=== PATIENT | female | born 1960 | race Caucasian/White ===

== ENCOUNTER 2021-02-04 13:53 | Emergency (ER) | payer MEDICARE, MEDICAID ==
[~2021-02-04] VITALS: Ht 157 cm; Wt 77.2 kg
[2021-02-04 14:22] LABS: BASOPHILS # (AUTO) 0.1 10^3/uL (0.0-0.1); BASOPHILS % (AUTO) 1 % (0-10); EOSINOPHILS # (AUTO) 0.2 10^3/uL (0.0-0.3); EOSINOPHILS % (AUTO) 1 % (0-10); HEMATOCRIT 44 % (35-52); HEMOGLOBIN 14.8 g/dL (11.5-16.0); LYMPHOCYTES # (AUTO) 5.6 10^3/uL (1.0-4.0); LYMPHOCYTES % (AUTO) 39 % (12-44); MEAN CORPUSCULAR HEMOGLOBIN 31 pg (25-34); MEAN CORPUSCULAR HGB CONC 33 g/dL (32-36); MEAN CORPUSCULAR VOLUME 94 fL (80-99); MEAN PLATELET VOLUME 9.1 fL (9.0-12.2); MONOCYTES # (AUTO) 1.1 10^3/uL (0.0-1.0); MONOCYTES % (AUTO) 8 % (0-12); NEUTROPHILS # (AUTO) 7.2 10^3/uL (1.8-7.8); NEUTROPHILS % (AUTO) 51 % (42-75); PLATELET COUNT 346 10^3/uL (130-400); WHITE BLOOD COUNT 14.2 10^3/uL (4.3-11.0)
[2021-02-04 14:29] LABS: POTASSIUM 3.9 MMOL/L (3.6-5.0)
[2021-02-04 14:30] LABS: CALCIUM 9.8 MG/DL (8.5-10.1)
[2021-02-04] MEDS ORDERED: LACTATED RINGERS 1,000 ML IV SCH (14:30)
[2021-02-04 14:31] LABS: TOTAL PROTEIN 7.5 GM/DL (6.4-8.2)
--- NOTE | 2021-02-04 14:32 | ED Syncope ---
General Chief Complaint: Dizziness/Syncope Stated Complaint: SYNCOPE Nursing Triage Note: TO ED PER EMS WAS AT [facility] REPORTS FEELING HOT AND THAN WAKING UP WITH PEOPLE LOOKING AT HER. REPORTS WAS CAUGHT BY SON AND HELPED TO GROWN. AWAKE ALERT ON ADMIT. AND READY TO GO HOME. PMH OF CVA IN JUN AND HAS WEAKNESS ON L SIDE FROM Source of Information: Patient Exam Limitations: No Limitations History of Present Illness Date Seen by Provider: Feb 04, 2021 Time Seen by Provider: 14:00 Initial Comments To ER by EMS from [facility]. She was at a football game feeling fine this morning when she got to feeling hot then lightheaded and laid down. She did not hit her head, there was some convulsion-like activity after this. She states that this time she feels back to normal and wants to go home. 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 Timing/Prior Episodes: No Prior History Symptoms Prior to Episode: None Precipitating Factors: None Loss of Consciousness: Brief (Seconds) Current Symptoms: Back to Normal Allergies and Home Medications Allergies Coded Allergies: Penicillins (Verified Allergy, Unknown, 02/04/21) Sulfa (Sulfonamide Antibiotics) (Verified Allergy, Unknown, 02/04/21) cephalexin (Verified Allergy, Unknown, 02/04/21) Patient Home Medication List Home Medication List Reviewed: Yes Review of Systems Constitutional: see HPI; No chills, No fever EENTM: see HPI Respiratory: no symptoms reported Cardiovascular: no symptoms reported Genitourinary: no symptoms reported Musculoskeletal: no symptoms reported Skin: no symptoms reported Psychiatric/Neurological: No Symptoms Reported Past [id number] Hx Patient Social History Tobacco Use?: Yes Substance use?: No Physical Exam Vital Signs Vital Signs - First Documented 02/04/21 13:53 Pulse 89 Resp 18 B/P (MAP) 129/80 (96) Pulse Ox 97 O2 Delivery Room Air Capillary Refill : Less Than 3 Seconds Height, Weight, BMI Height: '" Weight: lbs. oz. kg; 31.00 BMI Method: General Appearance: No Apparent Distress, WD/WN HEENT: PERRL/EOMI, TMs Normal Neck: Full Range of Motion, Normal Inspection Respiratory: No Accessory Muscle Use, No Respiratory Distress Gastrointestinal: Normal Bowel Sounds, Non Tender, Soft Extremities: Normal Capillary Refill, Normal Inspection Neurologic/Psychiatric: Alert, Oriented x3 Cranial Nerves: Normal Hearing, Normal Speech, PERRL Skin: Normal Color, Warm/Dry Progress/Results/Core Measures Results/Orders Lab Results Laboratory Tests Test 02/04/21 14:08 02/04/21 14:47 Range/Units White Blood Count 14.2 H 4.3-11.0 10^3/uL Red Blood Count 4.74 3.80-5.11 10^6/uL Hemoglobin 14.8 11.5-16.0 g/dL Hematocrit 44 35-52 % Mean Corpuscular Volume 94 80-99 fL Mean Corpuscular Hemoglobin 31 25-34 pg Mean Corpuscular Hemoglobin Concent 33 32-36 g/dL Red Cell Distribution Width 12.9 10.0-14.5 % Platelet Count 346 130-400 10^3/uL Mean Platelet Volume 9.1 9.0-12.2 fL Immature Granulocyte % (Auto) 1 % Neutrophils (%) (Auto) 51 42-75 % Lymphocytes (%) (Auto) 39 12-44 % Monocytes (%) (Auto) 8 0-12 % Eosinophils (%) (Auto) 1 0-10 % Basophils (%) (Auto) 1 0-10 % Neutrophils # (Auto) 7.2 1.8-7.8 10^3/uL Lymphocytes # (Auto) 5.6 H 1.0-4.0 10^3/uL Monocytes # (Auto) 1.1 H 0.0-1.0 10^3/uL Eosinophils # (Auto) 0.2 0.0-0.3 10^3/uL Basophils # (Auto) 0.1 0.0-0.1 10^3/uL Immature Granulocyte # (Auto) 0.1 0.0-0.1 10^3/uL Neutrophils % (Manual) 51 % Lymphocytes % (Manual) 35 % Monocytes % (Manual) 8 % Atypical Lymphocytes 6 % Blood Morphology Comment NORMAL Sodium Level 136 135-145 MMOL/L Potassium Level 3.9 3.6-5.0 MMOL/L Chloride Level 102 98-107 MMOL/L Carbon Dioxide Level 20 L 21-32 MMOL/L Anion Gap 14 5-14 MMOL/L Blood Urea Nitrogen 12 7-18 MG/DL Creatinine 1.22 0.60-1.30 MG/DL Estimat Glomerular Filtration Rate 45 BUN/Creatinine Ratio 10 Glucose Level 133 H 70-105 MG/DL Calcium Level 9.8 8.5-10.1 MG/DL Corrected Calcium 9.8 8.5-10.1 MG/DL Total Bilirubin 0.6 0.1-1.0 MG/DL Aspartate Amino Transf (AST/SGOT) 16 5-34 U/L Alanine Aminotransferase (ALT/SGPT) 20 0-55 U/L Alkaline Phosphatase 59 40-136 U/L Total Protein 7.5 6.4-8.2 GM/DL Albumin 4.0 3.2-4.5 GM/DL Urine Color YELLOW Urine Clarity SL CLOUDY Urine pH 5.5 5-9 Urine Specific Burchard >=1.030 1.016-1.022 Urine Protein TRACE H NEGATIVE Urine Glucose (UA) NEGATIVE NEGATIVE Urine Ketones NEGATIVE NEGATIVE Urine Nitrite POSITIVE H NEGATIVE Urine Bilirubin NEGATIVE NEGATIVE Urine Urobilinogen 0.2 < = 1.0 MG/DL Urine Leukocyte Esterase 1+ H NEGATIVE Urine RBC (Auto) NEGATIVE NEGATIVE Urine RBC 2-5 H /HPF Urine WBC >100 H /HPF Urine Squamous Epithelial Cells 2-5 /HPF Urine Crystals NONE /LPF Urine Bacteria MODERATE H /HPF Urine Casts PRESENT /LPF Urine Hyaline Casts 25-50 H /LPF Urine Mucus MODERATE H /LPF Urine Culture Indicated YES My Orders Orders - DANIELA MEIER APRN Ekg Tracing (02/04/21 14:02) Cbc With Automated Diff (02/04/21 14:02) Comprehensive Metabolic Panel (02/04/21 14:02) Ua Culture If Indicated (02/04/21 14:02) Ed Iv/Invasive Line Start (02/04/21 14:02) Ct Head Wo (02/04/21 14:03) Manual Differential (02/04/21 14:08) Lactated Ringers (Lr 1000 Ml Iv Solution (02/04/21 14:30) Urine Culture (02/04/21 14:47) Vital Signs/I&O 02/04/21 13:53 Pulse 89 Resp 18 B/P (MAP) 129/80 (96) Pulse Ox 97 O2 Delivery Room Air Blood Pressure Mean: 96 Departure Impression Primary Impression: Syncope Additional Impression: Urinary tract infection Disposition: 01 HOME, SELF-CARE Condition: Stable Departure-Patient Inst. Decision time for Depature: 15:19 Referrals: KAYLI MORGAN (PCP) Primary Care Physician Patient Instructions: Urinary Tract Infections in Adults Add. Discharge Instructions: 1. Return to ER for any worsening symptoms such as fevers or flank pain. Follow-up with your doctor next week. Antibiotics as directed. Increase fluid intake. All discharge instructions reviewed with patient and/or family. Voiced understanding. Scripts Levofloxacin (Levofloxacin) 500 Mg Tablet 500 MG PO DAILY, #5 TAB Prov: DANIELA MEIER APRN 02/04/21 DANIELA MEIER APRN Feb 04, 2021 14:32
[2021-02-04 14:33] LABS: BILIRUBIN,TOTAL 0.6 MG/DL (0.1-1.0)
[2021-02-04 14:35] LABS: CREATININE SERUM 1.22 MG/DL (0.60-1.30)
[2021-02-04 14:53] LABS: ATYPICAL LYMPHOCYTES 6 %; LYMPHOCYTES % (MANUAL) 35 %; MONOCYTES % (MANUAL) 8 %; NEUTROPHILS % (MANUAL) 51 %; RBC MORPH NORMAL
[2021-02-04 14:56] LABS: BILIRUBIN,URINE NEGATIVE (NEGATIVE); CLARITY,URINE SL CLOUDY; COLOR,URINE YELLOW; GLUCOSE, URINE (UA) NEGATIVE (NEGATIVE); KETONES,URINE NEGATIVE (NEGATIVE); LEUKOCYTE ESTERASE ,URINE 1+ (NEGATIVE); NITRITE,URINE POSITIVE (NEGATIVE); PH,URINE 5.5 (5-9); PROTEIN,URINE TRACE (NEGATIVE)
[2021-02-04 15:09] LABS: BACTERIA,URINE MODERATE /HPF; HYALINE CASTS, URINE 25-50 /LPF; WBC,URINE >100 /HPF
--- NOTE | 2021-02-04 15:10 | Diagnostic Imaging Report ---
PROCEDURE: CT head without contrast. TECHNIQUE: Multiple contiguous axial images were obtained through the brain without the use of intravenous contrast. Auto Exposure Controls were utilized during the CT exam to meet ALARA standards for radiation dose reduction. INDICATION: Syncope. COMPARISON: None. FINDINGS: There is no mass, shift of the midline or hemorrhage to suggest an acute intracranial abnormality. The ventricles are not abnormally dilated. The bone windows show no evidence for a fracture or for a destructive lesion. The orbits and sinuses, where visualized, are unremarkable for an acute abnormality. IMPRESSION: 1. There is no evidence for an acute intracranial abnormality. 2. If clinical concern regarding an underlying abnormality persists, then MRI would be recommended for further study. Dictated by: Dictated on workstation # [id number]
[2021-02-04] MEDS ORDERED: LEVO500T80 PO (15:20)
[2021-02-04 16:10] VITALS: BP 135/82
== END 2021-02-04 16:12 | disposition home or self-care (01) ==
LOC: EDUNIT# 13:53 → ER 13:55
DX: R55 Syncope and collapse (principal); N39.0 Urinary tract infection, site not specified
CPT/HCPCS: 36415; 70450; 80053; 81000; 85007; 85027; 87077; 87088; 87186; 93005; 96360